=== PATIENT | female | born 1985 | race African-American/Black ===

== ENCOUNTER 2018-12-21 21:12 | Emergency (ER) | payer OTHER ==
[~2018-12-21] VITALS: Ht 162.6 cm; Wt 80.7 kg
--- NOTE | 2018-12-21 21:15 | NUR ---
ED Nurse Note: Pt arrived ED from Home, c/o N/V for 2 days, Pt is a/o x 4. Bp 205/110mmhg. waiting for orders.
--- NOTE | 2018-12-21 21:21 | Emergency Room Report ---
History of Present Illness General Chief Complaint: Nausea, Vomiting, and Diarrhea Source: Patient, Friend Present Illness HPI Is a 33-year-old female with a history of renal failure on hemodialysis. Her dialysis days are Monday, and Monday. She also has a history of gastroparesis with frequent ER visits for abdominal pain with nausea and vomiting. She presents with chief complaint abdominal pain with nausea and vomiting. Onset yesterday. Unable to keep anything down. Did not got dialysis yesterday because she was too sick. Denies any fever chills. Pain is 10 out of 10. Vomiting is nonbloody nonbilious been no diarrhea. No fever or chills. Allergies: Coded Allergies: No Known Allergies (Unverified , 12/21/18) Patient History Past Medical History: see triage record, old chart reviewed, DM, HTN, renal disease, dialysis Past Surgical History: other Pertinent Family History: none Social History: Denies: smoking Now: No Immunizations: other Reviewed Nursing Documentation: PMH: Agreed; PSxH: Agreed Nursing Documentation-PMH Past Medical History: No History, Except For Hx Hypertension: Yes Hx Diabetes: Yes Hx Gastrointestinal Problems: Yes - Gastroparisis Hx Dialysis: Yes - Monday, , Monday Review of Systems Eye: Denies: eye pain, blurred vision ENT: Denies: ear pain, nose congestion, throat swelling Respiratory: Denies: cough, shortness of breath Cardiovascular: Denies: chest pain, palpitations Gastrointestinal: Reports: abdominal pain, nausea, vomiting; Denies: diarrhea Musculoskeletal: Denies: back pain, joint pain Skin: Denies: rash Neurological: Denies: headache, numbness Endocrine: Denies: increased thirst, increased urine Hematologic/Lymphatic: Denies: easy bruising All Other Systems: negative except mentioned in HPI Physical Exam Vital Signs Date Time Temp Pulse Resp B/P (MAP) Pulse Ox O2 Delivery O2 Flow Rate FiO2 12/21/18 21:14 98.2 106 20 216/121 100 Room Air vitals with high blood pressure Sp02 EP Interpretation: reviewed, normal General Appearance: well appearing, no apparent distress, alert Head: normocephalic, atraumatic Eyes: bilateral eye PERRL, bilateral eye EOMI ENT: hearing grossly normal, normal pharynx Neck: full range of motion, supple, no meningismus Respiratory: chest non-tender, lungs clear, normal breath sounds Cardiovascular #1: regular rate, rhythm, no murmur Gastrointestinal: no mass, no organomegaly, no bruit, non-distended, tenderness - Diffuse, decreased bowel sounds Musculoskeletal: back normal, gait/station normal, normal range of motion Psychiatric: mood/affect normal Skin: warm/dry Medical Decision Making Diagnostic Impression: Primary Impression: Nausea and vomiting in adult Additional Impressions: Abdominal pain Qualified Codes: R10.84 - Generalized abdominal pain Gastroparesis Hyperglycemia ER Course Patient presents with exacerbation of her gastroparesis. This probably due to poorly controlled diabetes. No longer vomiting here. Vital signs stable. Blood pressure improved. We'll discharge home. She says she is not taking any blood pressure medication. Usually runs low. Potassium stable. She scheduled for dialysis tomorrow at 4 AM. Leukocytosis probably secondary to acute stress response. I see no evidence of any obstruction or acute abdomen. Patient has multiple workup with CT scan in the past. Lab Results Impression lab with leukocytosis and hyperglycemia Last Vital Signs Date Time Temp Pulse Resp B/P (MAP) Pulse Ox O2 Delivery O2 Flow Rate FiO2 12/21/18 21:14 98.2 106 20 216/121 100 Room Air Status: improved Disposition: HOME, SELF-CARE Condition: Stable Scripts Metoclopramide Hcl* (REGLAN*) 10 Mg Tablet 10 MG ORAL THREE TIMES A DAY, #30 TAB Prov: Fidel Alonso MD 12/21/18 Additional Instructions: Advance diet as tolerated. Keep your dialysis appointment at 4 AM. Follow-up with your Dr. in 2 to 3 days if not better. You would benefit from referral to see a GI doctor. Return if worse. Fidel Alonso MD Dec 21, 2018 21:21
--- NOTE | 2018-12-21 21:25 | NUR ---
ED Nurse Note: Blood collected and sent to Lab.
[2018-12-21] MEDS ORDERED: Morphine Sulfate 4mg/ml Inj (IV USE ONLY) IVP ONE (21:30)
--- NOTE | 2018-12-21 21:35 | NUR ---
ED Nurse Note: Meds given as ordered.
[2018-12-21] MEDS ORDERED: Promethazine HCl 50 MG in NS 110 ML IVPB ONE (22:00)
[2018-12-21 22:04] LABS: BASOPHILS % (AUTO) 1.1 % (0.0-2.0); EOSINOPHILS % (AUTO) 0.2 % (0.0-3.0); HEMATOCRIT 33.9 % (37.0-47.0); HEMOGLOBIN 10.7 G/DL (12.0-16.0); LYMPHOCYTES % (AUTO) 19.4 % (20.0-45.0); MEAN CORPUSCULAR VOLUME 88 FL (80-99); MONOCYTES % (AUTO) 3.5 % (1.0-10.0); NEUTROPHILS % (AUTO) 75.9 % (45.0-75.0); PLATELET COUNT 406 K/UL (150-450); RED BLOOD COUNT 3.83 M/UL (4.20-5.40); RED CELL DISTRIBUTION WIDTH 14.9 % (11.6-14.8); WHITE BLOOD COUNT 16.8 K/UL (4.8-10.8)
[2018-12-21 22:15] VITALS: BP 194/112
[2018-12-21 22:16] LABS: ANION GAP 9 mmol/L (5-15); BLOOD UREA NITROGEN 41 mg/dL (7-18); CALCIUM 10.9 MG/DL (8.5-10.1); CARBON DIOXIDE 32 MMOL/L (21-32); CHLORIDE 95 MMOL/L (98-107); CREATININE 6.7 MG/DL (0.55-1.30); POTASSIUM 4.3 MMOL/L (3.5-5.1); SODIUM 136 MMOL/L (136-145)
[2018-12-21 22:20] LABS: ALANINE AMINOTRANSFERASE 15 U/L (12-78); ALBUMIN 4.2 G/DL (3.4-5.0); ALBUMIN/GLOBULIN RATIO 0.8 (1.0-2.7); ALKALINE PHOSPHATASE 120 U/L (46-116); ASPARTATE AMINO TRANSFERASE 13 U/L (15-37); BILIRUBIN,TOTAL 0.3 MG/DL (0.2-1.0)
[2018-12-21] MEDS ORDERED: REGLAN10 MG ORAL (22:51)
[2018-12-21 23:23] VITALS: BP 143/82
--- NOTE | 2018-12-21 23:23 | NUR ---
ER DISCHARGE NOTE: Patient is cleared to be discharged per Dr. Alonso. Pt is aox4 on room air with stable vital signs. Pt was given dc and prescription instructions, pt was able to verbalize understanding. Pt's id band and iv site removed without complications. Pt is able to ambulate with steady gait and pt took all belongings.
== END 2018-12-21 23:23 | disposition home or self-care (01) ==
LOC: EMR 22:18
DX: R11.2 Nausea with vomiting, unspecified (principal); N17.9 Acute kidney failure, unspecified; R10.9 Unspecified abdominal pain; E11.43 Type 2 diabetes mellitus with diabetic autonomic (poly)neuropathy; K31.84 Gastroparesis
CPT/HCPCS: 36415; 80053; 83690; 85025; 96365; 96375; 99284; J0360; J2270; J2405; J2550